=== PATIENT | male | born 1965 | race Asian ===

== ENCOUNTER 2020-05-14 21:56 | Emergency (ER) | payer BC, OTHER ==
[~2020-05-14] VITALS: Ht 177.8 cm; Wt 87.1 kg
[2020-05-14 22:05] VITALS: Ht 177.8 cm; Wt 87.1 kg
[2020-05-14 23:50] VITALS: BP 145/77
== END 2020-05-14 23:50 | disposition short-term general hospital (02) ==
LOC: ED 21:56
DX: S22.42XA Multiple fractures of ribs, left side, initial encounter for closed fracture (principal); S40.012A Contusion of left shoulder, initial encounter; I10 Essential (primary) hypertension; V29.49XA Motorcycle driver injured in collision with other motor vehicles in traffic accident, initial encounter; Y93.89 Activity, other specified; Y92.89 Other specified places as the place of occurrence of the external cause; Y99.8 Other external cause status
CPT/HCPCS: 90715; J2270; J2405; Q0092